=== PATIENT | male | born 2000 | race Caucasian/White ===

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

== ENCOUNTER → 2019-02-03 | Outpatient (CLI) | payer BC ==
[~2019-02-03] MED LIST: ERYTOIN8 OD
--- NOTE | 2019-02-04 08:06 | REP ---
Clinical: Left shoulder pain . Technique: Internal rotation, external rotation, and Y view left shoulder . Findings: No acute fracture or dislocation. The acromioclavicular and glenohumeral joints are intact. No periarticular calcifications or degenerative changes are appreciated. Sub acromial space is normal. Surrounding soft tissues are unremarkable. Impression: Normal left shoulder radiographs. Electronically Signed by Kyaw Monique MD 02/04/2019 07:58 A
== END ==
LOC: M RAD 21:17
PROVIDERS: ATTEND Physician Assistant Medical
DX: M25.512 Pain in left shoulder (principal)

== ENCOUNTER → 2021-07-23 | Outpatient (REF) | payer OTHER ==
[2021-07-23 21:57] LABS: AMORPHOUS SEDIMENT SMALL (NEGATIVE); APPEARANCE, URINE HAZY (CLEAR); BACTERIA, URINE AUTO NEGATIVE (NEGATIVE); BILIRUBIN, URINE AUTO NEGATIVE (NEGATIVE); BLOOD, URINE BLOOD NEGATIVE (NEGATIVE); COLOR, URINE YELLOW (YELLOW); GLUCOSE, URINE (UA) AUTO NEGATIVE (NEGATIVE); KETONE, URINE AUTO NEGATIVE (NEGATIVE); LEUKOCYTE ESTERASE, URINE AUTO NEGATIVE (NEGATIVE); MUCUS, URINE SMALL (NEGATIVE); NITRITE, URINE AUTO NEGATIVE (NEGATIVE); PROTEIN, URINE AUTO NEGATIVE (NEGATIVE); RBC, URINE AUTO 1 /HPF (0-3); SPECIFIC GRAVITY URINE AUTO 1.017 (1.002-1.035); SQUAMOUS EPITHELIAL CELL UR AU 0 /HPF (0-6); WBC, URINE AUTO 1 /HPF (0-3)
[2021-07-23 23:29] LABS: GC DNA AMPLIFICATION NEGATIVE (NEGATIVE)
== END ==
LOC: M LAB REF 21:17
PROVIDERS: ATTEND Physician Assistant Medical
DX: R30.0 Dysuria (principal)